=== PATIENT | male | born 1990 | race Caucasian/White ===

== ENCOUNTER 2018-06-14 09:32 | Emergency (ER) | payer BC ==
--- NOTE | 2018-06-14 09:49 | UC ---
Skin Complaint HPI - HPI Summary HPI Summary: A 28 y/o M presents to [facility] with suspected tick bite on upper thigh of RLE onset four days ago. He noticed a small red spot at onset that he thought might be an in-grown hair. This morning, the area began to feel more like a bruise and was mildly pruritic. Pt is outside often on weekends, but has not seen a tick. Denies PMHx: Lyme dz. - History of Current Complaint Chief Complaint: [facility] Time Seen by Provider: 06/14/18 09:43 Stated Complaint: TICK BITE Hx Obtained From: Patient Onset/Duration: Lasting Days, Still Present Skin Exposure Onset/Duration: Days Ago Timing: Constant Onset Severity: Mild Current Severity: Mild Pain Intensity: 0 Pain Scale Used: 0-10 Numeric Location: Other - RLE thigh Character: Pruritus, Redness Aggravating Factor(s): Nothing Alleviating Factor(s): Nothing Associated Signs & Symptoms: Positive: Negative - Allergy/Home Medications Allergies/Adverse Reactions: Allergies Allergy/AdvReac Type Severity Reaction Status Date / Time No Known Allergies Allergy Verified 06/14/18 09:38 Review of Systems Constitutional: Negative - fever Skin: Other - R thigh: mild area of erythema and pruritus that feels bruised All Other Systems Reviewed And Are Negative: Yes PMH/Surg Hx/FS Hx/Imm Hx Previously Healthy: Yes - neg: Lyme dz Respiratory History: Asthma - Surgical History Surgical History: None - Family History Known Family History: Negative: Cardiac Disease, Hypertension, Diabetes - Social History Occupation: Employed Full-time Lives: With Family Alcohol Use: Occasionally Substance Use Type: None Smoking Status (MU): Never Smoked Tobacco Physical Exam - Summary Physical Exam Summary: General: well-appearing, no pain distress Skin: warm, color reflects adequate perfusion, dry. There is a flat, blanching, erythematous, cellulitic rash, approx 3cm, on R anterior thigh. Head: normal Eyes: EOMI, MARTINE ENT: normal Neck: supple, FROM Respiratory: No respiratory distress Abdomen: soft Bowel: present Musculoskeletal: normal, strength/ROM intact Neurological: sensory/motor intact, A&O x3 Psychological: affect/mood appropriate Triage Information Reviewed: Yes Vital Signs: Initial Vital Signs Temp 98.1 F 06/14/18 09:39 Pulse 65 06/14/18 09:39 Resp 16 06/14/18 09:39 BP 122/87 06/14/18 09:39 Pulse Ox 100 06/14/18 09:39 Vital Signs Reviewed: Yes Course/Dx - Course Course Of Treatment: Medications reviewed. Allergies noted. BP noted. We discussed the possibility that this is a folliculitis with surrounding cellulitis versus a tick bite rash. At this time I will treat with doxycycline 100 mg by mouth twice a day for 14 days as it will cover both Lyme and cellulitis. Follow-up with primary care doctor recheck sooner if worse - Diagnoses Provider Diagnoses: RIGHT LEG CELLULITIS Discharge - Sign-Out/Discharge Documenting (check all that apply): Patient Departure All imaging exams completed and their final reports reviewed: No Studies - Discharge Plan Condition: Stable Disposition: HOME Prescriptions: DOXYcycline CAP(*) [DOXYcycline 100MG CAP(*)] 100 mg PO BID #28 cap Patient Education Materials: Cellulitis (ED) Referrals: [facility] [Outside] Additional Instructions: FOLLOW UP WITH YOUR DOCTOR IF NOT COMPLETELY IMPROVED. GET RECHECKED FOR ANY WORSENING OF YOUR CONDITION OR QUESTIONS OR CONCERNS. - Billing Disposition and Condition Condition: STABLE Disposition: Home - Attestation Statements Document Initiated by Scribe: Yes Documenting Scribe: Abilio Mauro Provider For Whom Scribe is Documenting (Include Credential): Dr. Greg Wallace MD Scribe Attestation: Abilio Lawrence, scribed for Dr. Greg Wallace MD on 06/14/18 at 1046. Scribe Documentation Reviewed: Yes Provider Attestation: The documentation as recorded by the Abilio tapia accurately reflects the service I personally performed and the decisions made by me, Dr. Greg Wallace MD
== END 2018-06-14 09:56 | disposition home or self-care (01) ==
LOC: UCEAST 09:32
DX: L03.115 Cellulitis of right lower limb (principal)
CPT/HCPCS: 99212; G0463

== ENCOUNTER 2018-11-28 11:18 | Emergency (ER) | payer BC ==
--- NOTE | 2018-11-28 11:59 | UC ---
FLU HPI - HPI Summary HPI Summary: Ill with flu-like symptoms since Monday. "Broke" his fever last night. Felling better as far as body aches and fever but today he has a sore throat and a congested cough to the point where he feels mildly SOB when coughing. - History of Current Complaint Chief Complaint: UCRespiratory Stated Complaint: POSS FLU Time Seen by Provider: 11/28/18 11:58 Hx Obtained From: Patient Onset/Duration: Gradual Onset Severity Currently: Mild Severity Initially: Moderate Pain Intensity: 2 Associated Signs & Symptoms: Positive: Fever, Cough, Sore Throat - Fever broke last evening, sore throat worse today with a congested cough - Risk Factors Influenza Risk Factors: Negative - Allergy/Home Medications Allergies/Adverse Reactions: Allergies Allergy/AdvReac Type Severity Reaction Status Date / Time No Known Allergies Allergy Verified 11/28/18 11:53 Home Medications: Home Medications Dm/PE/Acetaminophen/Doxylamine [Vicks Dayquil/Nyquil Cold] 1 mis PO DAILY PRN [History Confirmed 11/28/18] Naproxen Sodium [Aleve] 440 mg PO ONCE PRN 11/28/18 [History Confirmed 11/28/18] PMH/Surg Hx/FS Hx/Imm Hx Previously Healthy: Yes - Surgical History Surgical History: None - Family History Known Family History: Negative: Cardiac Disease, Hypertension, Diabetes - Social History Alcohol Use: Occasionally Substance Use Type: None Smoking Status (MU): Never Smoked Tobacco Review of Systems All Other Systems Reviewed And Are Negative: Yes Constitutional: Positive: Fever, Chills - Improved since last evening Skin: Positive: Negative Eyes: Positive: Negative ENT: Positive: Sore Throat Respiratory: Positive: Cough - Congested cough with thick yellow sputum, pt non- smoker Cardiovascular: Positive: Negative Gastrointestinal: Positive: Negative Genitourinary: Positive: Negative Motor: Positive: Negative Neurovascular: Positive: Negative Musculoskeletal: Positive: Negative Neurological: Positive: Negative Psychological: Positive: Negative Is Patient Immunocompromised?: No Physical Exam Triage Information Reviewed: Yes Appearance: Well-Appearing, No Pain Distress, Well-Nourished Vital Signs: Initial Vital Signs Temp 98.4 F 11/28/18 11:50 Pulse 83 11/28/18 11:50 Resp 18 11/28/18 11:50 BP 122/72 11/28/18 11:50 Pulse Ox 98 11/28/18 11:50 Vital Signs Reviewed: Yes Eye Exam: Normal ENT: Positive: Pharyngeal erythema. Negative: Tonsillar swelling, Tonsillar exudate Neck exam: Normal Respiratory: Positive: Lungs clear, Normal breath sounds, No respiratory distress Cardiovascular Exam: Normal Abdominal Exam: Normal Bowel Sounds: Positive: Present Musculoskeletal Exam: Normal Neurological Exam: Normal Psychological Exam: Normal Skin Exam: Normal Flu Course/Dx - Course Course Of Treatment: Comfortable here, does not appear in any distress. Rapid flu test Positive for Type A. CXR negative. Rapid strep negative. - Differential Dx/Diagnosis Differential Diagnosis/HQI/PQRI: Influenza Provider Diagnosis: Influenza A, Pharyngitis Discharge - Sign-Out/Discharge Documenting (check all that apply): Patient Departure All imaging exams completed and their final reports reviewed: Yes - Discharge Plan Condition: Good Disposition: HOME Patient Education Materials: Influenza (DC) Referrals: No Primary Care Phys,NOPCP [Primary Care Provider] - Additional Instructions: Increase fluids, Follow up with yur primary care provider in 3-4 days if no improvement. Care connections at [phone] can help you establish care with a primary care provider. - Billing Disposition and Condition Condition: GOOD Disposition: Home
[2018-11-28 12:24] LABS: Influenza A Molecular POSITIVE (Negative)
== END 2018-11-28 13:36 | disposition home or self-care (01) ==
LOC: UCEAST 11:18
DX: J10.1 Influenza due to other identified influenza virus with other respiratory manifestations (principal)
CPT/HCPCS: 71046; 87651; 99212; G0463

== ENCOUNTER 2019-09-02 09:45 | Day surgery (SDC) | payer BC ==
[~2019-09-02 09:45] MED LIST: Buffered Lidocaine 1% SYRIN* 1 ML/SYRINGE INTRADERM ONE; Famotidine IV* 10 MG/ML 2 ML (20 mg) IV ONE; Lactated Ringers 1000 ML Bag* 1,000 ML IV SCH
[2019-09-02] MEDS ORDERED: Famotidine IV* 10 MG/ML 2 ML (20 mg) ONE (09:59)
[2019-09-02] MEDS ORDERED: ceFAZolin 2 GM PREMIX in ORs 2 GM/50 ML BAG ONE (09:59)
[2019-09-02] MEDS ORDERED: Ropivacaine 0.2% * 2 MG/ML VIAL ONE (10:13)
[2019-09-02] MEDS ORDERED: Bupivacaine 0.25% SDV PF* 10 ML VIAL INJ ONE (10:13)
[2019-09-02] MEDS ORDERED: Lidocaine 1% w EPI 1:200,000* SDV 30 ML VIAL ONE (10:14)
[2019-09-02] MEDS ORDERED: ROPIVACAINE 5 MG/ML 30 ML BTL (0.5%) ONE (11:00)
[2019-09-02] MEDS ORDERED: Lidocaine 1% MPF ** 5 ML VIAL ONE (11:01)
[2019-09-02] MEDS ORDERED: Midazolam* 1 MG/ML 5 ML VIAL (5 MG) ONE (11:22)
[2019-09-02] MEDS ORDERED: fentaNYL* 50 MCG/ML 2 ML VIAL (100 MCG VIAL) ONE ×2 (11:24→11:30)
[2019-09-02] MEDS ORDERED: Propofol* 10 MG/ML 20 ML BTL ONE (11:51)
[2019-09-02] MEDS ORDERED: Ondansetron INJ* 2 MG/ML VIAL ONE (11:51)
[2019-09-02] MEDS ORDERED: Succinylcholine* 20 MG/ML 10 ML VIAL ONE (11:51)
[2019-09-02] MEDS ORDERED: Lidocaine 2% PF * 5 ML VIAL ONE (11:51)
[2019-09-02] MEDS ORDERED: Ketorolac INJ* 30 MG/ML 1 ML VIAL ONE (11:51)
[2019-09-02] MEDS ORDERED: Dexamethasone IV* 4 MG/ML 1 ML (4 MG) ONE (11:52)
[2019-09-02] MEDS ORDERED: Naloxone* 0.4 MG/ML 1 ML VIAL IV PRN (12:17)
[2019-09-02] MEDS ORDERED: HYDROmorphone INJ1* 1 MG/ML SYRINGE IV PRN (12:17)
[2019-09-02] MEDS ORDERED: DiMENhydriNATE IV* 50 MG/ML VIAL IV PUSH PRN (12:17)
[2019-09-02] MEDS ORDERED: Acetaminophen TAB* 325 MG PO PRN (12:17)
[2019-09-02 14:15] VITALS: BP 124/68
--- NOTE | 2019-09-05 13:17 | OP ---
DATE OF OPERATION: 09/02/19 [facility] DATE OF : 86 SURGEON: Hever Ngo MD DESIGN ASSISTANT: JOHNNIE Pemberton ANESTHESIOLOGIST: Dr. Hardy. ANESTHESIA: General, interscalene block. PRE-OP DIAGNOSIS: Left shoulder instability with SLAP tear. POST-OP DIAGNOSIS: Left shoulder instability with SLAP tear. OPERATIVE PROCEDURE: Left shoulder arthroscopy with: 1. Anterior labral repair. 2. Biceps tenodesis. 3. Debridement of the rotator cuff. COMPLICATIONS: None. ESTIMATED BLOOD LOSS: Minimal. IMPLANTS: Two Bioraptors, one 1.8 Q-Fix and one 2.8 Q-Fix. INDICATIONS: Mark Cantu is a 29-year-old male who presents with instability of his shoulder. He had persistent pain. He has failed conservative management. He had an MRI documenting labral tearing that looks like it could be ____ degrees but definitely anterior labral tearing. He has instability. He has failed conservative management. He has elected to proceed with surgical treatment. Risks and benefits were discussed at length which include, but were not limited to, bleeding; infection; damage to nerves, vessels , surrounding structures; wound nonhealing; persistent pain; need for further surgery; scarring; stiffness; incomplete relief of symptoms; and risk of anesthesia. DESCRIPTION OF PROCEDURE: The patient was greeted in the preoperative area by the attending surgeon. Correct extremity was marked and consent was confirmed. The patient underwent interscalene nerve block by the anesthesiologist, after which he was brought back to the operating suite where he was placed in the supine position on the operating table and underwent general anesthesia and endotracheal intubation, after which he was placed in the right lateral decubitus position with all bony prominences padded and secured with a pegboard. The left arm was draped unsterile with 10 pounds of traction. The left shoulder was then prepped and draped in the usual sterile fashion beginning with chlorhexidine soap, scrub, and alcohol wipe and a final prep with ChloraPrep. After appropriate surgical pause indicating side, site, procedure, and administration of antibiotics, a standard postero-lateral portal was made sharply with 11 blade. The scope was introduced into the joint. Joint was examined. There was evidence of some subluxation of the anterior shoulder and displaced anterior labral tear. Posterior labrum actually looked quite good. The superior labrum had type 2 SLAP tear with synovitis along the biceps. A low anterior portal was made using 18-gauge needle and then a 0.2 mm cannula was placed. The biceps was then tenotomized for later tenodesis. A second cannula was placed more superiorly in the interval which is a 5.5 mm cannula for suture shuttling. The labrum was then elevated. A 70-degree scope was used to visualize. The labrum was then carefully elevated. The shaver and rasp were used to rasp the glenoid. Actually, the glenoid was prepared and there was a good bony bleeding bed. [place] placement began inferiorly around the 5:30 position. The curved [employer] 1.8 Q-Fix was placed with excellent purchase. Sutures were passed through the tissue in a horizontal mattress configuration which helped to restore the labrum as well as the and eliminate drive-through sign. This was then tied down using arthroscopic knot-tying technique. A second anchor was placed and this was a Bioraptor around the 4:30 position with excellent purchase. This was passed again in a horizontal mattress configuration and to restore the labrum and then the last anchor was placed around the 3:30 to 3 o'clock position which was passed in simple fashion. After this was secured, the final images were obtained. The head was found to be sitting more appropriately and centrally. The posterior labrum was checked again. There was no evidence of unstable tearing. The wounds were then copiously irrigated. Attention was directed to the biceps. There was some partial- thickness tearing of the undersurface of the supraspinatus which was debrided back using the shaver. This appeared to be very mild. The bed was airplaned to the left side. The anterior aspect of the shoulder was prepped again using ChloraPrep. A 15 blade was used to make an incision in line with the biceps tendon. Soft tissues were carefully dissected to expose the pec, which was then elevated. The biceps was then palpated and brought to the wound. It had synovitis. The groove was then prepared in the usual fashion using electrocautery device, red ball rasp, and osteotome. The Q-Fix was then deployed with excellent purchase. The sutures were then passed through the tendon 1 cm proximal to the musculo-tendinous junction. The excess stump was excised. The biceps was shuttled back to the wound. The wounds were copiously irrigated with sterile saline. The portals were closed with 3-0 nylon. The anterior wound was closed with 3-0 Monocryl in the subcu in a running fashion. Sterile dressings were applied. A Cryo/Cuff and UltraSling were applied. He was awoken from anesthesia and transferred to the PACU in stable condition. POSTOPERATIVE PLAN: He will be nonweightbearing. he will be in the sling for about 4 weeks. Discharged on pain medications. DVT prophylaxis was considered , but deferred due to no previous personal or family history. I will see the patient back in 10 to 14 days. [id number]/[facility] #: [id number] OBEY
== END 2019-09-02 14:10 | disposition home or self-care (01) ==
LOC: OREAST 09:45
PROVIDERS: ATTEND Orthopaedic Surgery
DX: M25.312 Other instability, left shoulder (principal); S43.432A Superior glenoid labrum lesion of left shoulder, initial encounter; M75.22 Bicipital tendinitis, left shoulder; X58.XXXA Exposure to other specified factors, initial encounter; Y92.9 Unspecified place or not applicable; G89.18 Other acute postprocedural pain; F10.11 Alcohol abuse, in remission
CPT/HCPCS: C1776; J0330; J0690; J1100; J1885; J2001; J2250; J2405; J2704; J2795; J3010; J3490